=== PATIENT | female | born 1940 | race Caucasian/White ===

== ENCOUNTER → 2020-05-31 | Day surgery (SDC) | payer MEDICARE, MEDICAID ==
[2020-05-24 11:44] LABS: BASOPHILS % (AUTO) 0.5 % (0-1); EOSINOPHILS # (AUTO) 0.1 X10'3 (0-0.9); EOSINOPHILS % (AUTO) 1.1 % (0-6); LYMPHOCYTES # (AUTO) 1.2 X10'3 (1.1-4.8); LYMPHOCYTES % (AUTO) 26.8 % (21-51); MEAN CORPUSCULAR HEMOGLOBIN 32.1 PG (27.0-31.0); MEAN CORPUSCULAR VOLUME 94.5 FL (78-98); MEAN PLATELET VOLUME 8.9 FL (7.4-10.4); MONOCYTES # (AUTO) 0.4 X10'3 (0-0.9); MONOCYTES % (AUTO) 9.4 % (2-12); NEUTROPHILS # (AUTO) 2.9 X10'3 (1.8-7.7); NEUTROPHILS % (AUTO) 62.2 % (42-75); PRE OP HEMATOCRIT 43.8 % (35.0-45.0); PRE OP HEMOGLOBIN 14.9 g/dL (12.0-16.0); PRE OP PLATELET COUNT 177 X10'3 (140-440); RED BLOOD COUNT 4.63 X10'6 (4.20-5.60); RED CELL DISTRIBUTION WIDTH 13.8 % (11.5-14.5)
[2020-05-24 12:02] LABS: ALBUMIN 3.9 G/DL (3.4-5.0); ALBUMIN/GLOBULIN RATIO 1.1 (1.1-1.5); ALKALINE PHOSPHATASE 77 IU/L (46-116); BLOOD UREA NITROGEN 16 MG/DL (7-18); CALCIUM 9.6 MG/DL (8.5-10.1); CHLORIDE 101 MMOL/L (99-107); PRE OP ALT 9 U/L (30-65); PRE OP ANION GAP 8 (8-16); PRE OP AST 24 U/L (10-37); PRE OP BILIRUB, TOTAL 0.6 MG/DL (0.0-1.0); PRE OP GLUCOSE 115 MG/DL (70-104); PRE OP PROTIME 9.8 SECONDS (9.0-12.0); PRE OP SODIUM 140 MMOL/L (135-145); TOTAL CARBON DIOXIDE 30.9 MMOL/L (24-32); TOTAL PROTEIN 7.6 G/DL (6.4-8.2); eGFR 53 ML/MIN
[2020-05-31] VITALS (24 sets, daily range): BP systolic 126–184; BP diastolic 78–102
[~2020-05-31] VITALS: Ht 172.7 cm; Wt 74.4 kg
[~2020-05-31] MED LIST: BUPIVAcaine 0.5% inj/PF 60 ML ONE; BUPIVAcaine/PF 2.5 mg/ml (0.25%) 30ml vial ONE; CARB1CAP PO; HYDROmorphone inj. 0.5 MG/0.5 ML DISP.SYRIN IV PRN; LIDOcaine 1% 30ml preserv. free vial ONE; LIDOcaine 1% w/epiNEPHrine 1:200,000 30ml vial ONE; LOSA50TA3 PO; PANT20TA18 PO; ceFAZolin 2gm in dextrose, iso 50 ML IV ONE; famotidine 10mg tablet PO ONE; fentaNYL/PF 50MCG/1 ML 2ML syringe IV PRN; fentaNYL/PF 50MCG/1 ML 2ML syringe ONE; hydrALAZINE 20mg/ml inj. IV PRN; labetalol 20mg/4ml (5mg/ml) syringe IV ONE; morphine 10mg/ml inj. ONE; ondansetron/PF 4mg/2ml inj IV PRN; propofol inj 20 ML IV ONE; ringers solution, lacted 1,000 ML IV SCH; triamcinolone acetonide 40mg/ml inj ONE; vancomycin 1,500 MG in NS 300ml IV soln IV ONE
--- NOTE | 2020-05-31 10:19 | NUR ---
Received from OR via [facility], accompanied by Anesthesiologist STEWART and report given by Anesthesiolgist. PATIENT WITH 20G PIV IN LEFT UE RUNNING LR AT 100. DENIES PAIN. LEFT KNEE DRESSING IS CDI. + DP. Addendum: 05/31/20 at 1055 by Ravi Mccann RN, RN Amended: Links added.
[2020-05-31] MEDS: labetalol 20mg/4ml (5mg/ml) syringe IV PRN ×2 (12:04→13:18)
--- NOTE | 2020-05-31 12:42 | NUR ---
MD WILLIAM CALLED EARLIER FOR INCREASING BP. PATIENT ORDERS FOR APRESSOLINE ATTAINED. ADMINISTERED WITH NO CHANGE IN BP. DENIES PAIN. CALLED MD AGAIN 15 MINS AFTER APRESSOLINE. HR IN 70S, LABETALOL ORDERS RECIEVED AND MEDS ADMINISTERED. PATIENT STATES SHE FEELS VERY WEAK AND JUST WANTS TO SLEEP. NOTIFIED OF MINIMAL CHANGE OF CONDITION AND I REQUESTED THAT HE SEES PATIENT. MD COMPLIES- ASSESSED SITUATION. EKG ORDER RECEIVED AND ORDERS TO CONTINUE TO ASSESS WITH THE POSSIBILITY OF ADMISSION TO THE HOSPITAL. PATIENT CONTINUES TO DECLINE HAVING PAIN. CHANGED BP CUFF TO OTHER UE. NO CHANGE IN CURRENT BPS. BLOOD GLUCOSE OF 104. 1 HR LATER BPS GRADUALLY DECREASING. HOWEVER PATIENT CONTINUES TO FEEL POORLY. Addendum: 05/31/20 at 1249 by Ravi Mccann RN, RN Amended: Links added.
--- NOTE | 2020-05-31 13:59 | NUR ---
ALL DC CRITERIA HAS BEEN MET. PATIENT VOIDING, WALKING, DRESSED WITH ASSIST. VSS. DENIES PAIN. VERY APPRECIATIVE OF PATIENT CARE. OUT VIA WHEELCHAIR WHERE PATIENTS DAUGHTER TOOK PATIENT HOME. IV OUT WITHOUT INCIDENT. Addendum: 05/31/20 at 1446 by Ravi Mccann RN RN Amended: Links added.
== END | disposition home or self-care (01) ==
LOC: PAS 07:16
PROVIDERS: ATTEND Orthopaedic Surgery
DX: S83.272A Complex tear of lateral meniscus, current injury, left knee, initial encounter (principal); S83.232A Complex tear of medial meniscus, current injury, left knee, initial encounter; M94.262 Chondromalacia, left knee; I10 Essential (primary) hypertension; K21.9 Gastro-esophageal reflux disease without esophagitis; E78.5 Hyperlipidemia, unspecified; E66.8 Other obesity; Z68.27 Body mass index [BMI] 27.0-27.9, adult; G20 Parkinson's disease; M17.0 Bilateral primary osteoarthritis of knee; E11.51 Type 2 diabetes mellitus with diabetic peripheral angiopathy without gangrene; Z79.899 Other long term (current) drug therapy; Z88.5 Allergy status to narcotic agent; Z88.8 Allergy status to other drugs, medicaments and biological substances; Z98.890 Other specified postprocedural states; Z87.891 Personal history of nicotine dependence; Z20.828 Contact with and (suspected) exposure to other viral communicable diseases; Z79.01 Long term (current) use of anticoagulants; X58.XXXA Exposure to other specified factors, initial encounter; Y93.89 Activity, other specified; Y92.89 Other specified places as the place of occurrence of the external cause; Y99.8 Other external cause status
CPT/HCPCS: 29873; 29879; 29880; 36415; 80053; 82948; 85025; 85610; 85730; 87635; 93005; J0360; J2001; J2270; J2704; J3010; J3301; J3370; J3490; J7040; A4215; A4618; A6250; A6449; A7000; J7120

== ENCOUNTER 2021-02-24 18:38 | Emergency (ER) | payer BC, MEDICAID ==
[~2021-02-24] VITALS: Ht 172.7 cm; Wt 75.5 kg
[~2021-02-24 18:38] MED LIST changes: -BUPIVAcaine 0.5% inj/PF 60 ML ONE; -BUPIVAcaine/PF 2.5 mg/ml (0.25%) 30ml vial ONE; -HYDROmorphone inj. 0.5 MG/0.5 ML DISP.SYRIN IV PRN; -LIDOcaine 1% 30ml preserv. free vial ONE; -LIDOcaine 1% w/epiNEPHrine 1:200,000 30ml vial ONE; -ceFAZolin 2gm in dextrose, iso 50 ML IV ONE; -famotidine 10mg tablet PO ONE; -fentaNYL/PF 50MCG/1 ML 2ML syringe IV PRN; -fentaNYL/PF 50MCG/1 ML 2ML syringe ONE; -hydrALAZINE 20mg/ml inj. IV PRN; -labetalol 20mg/4ml (5mg/ml) syringe IV ONE; -morphine 10mg/ml inj. ONE; -ondansetron/PF 4mg/2ml inj IV PRN; -propofol inj 20 ML IV ONE; -ringers solution, lacted 1,000 ML IV SCH; -triamcinolone acetonide 40mg/ml inj ONE; -vancomycin 1,500 MG in NS 300ml IV soln IV ONE
[2021-02-24 19:20] LABS: BASOPHILS % (AUTO) 0.4 % (0-1); EOSINOPHILS # (AUTO) 0.1 X10'3 (0-0.9); EOSINOPHILS % (AUTO) 1.9 % (0-6); HEMATOCRIT 43.3 % (35.0-45.0); HEMOGLOBIN 14.8 g/dl (12.0-16.0); LYMPHOCYTES # (AUTO) 1.3 X10'3 (1.1-4.8); LYMPHOCYTES % (AUTO) 27.2 % (21-51); MEAN CORPUSCULAR HEMOGLOBIN 32.2 PG (27.0-31.0); MEAN CORPUSCULAR HGB CONC 34.1 g/dL (33.0-36.5); MEAN CORPUSCULAR VOLUME 94.3 FL (78-98); MEAN PLATELET VOLUME 8.8 FL (7.4-10.4); MONOCYTES # (AUTO) 0.5 X10'3 (0-0.9); MONOCYTES % (AUTO) 10.9 % (2-12); NEUTROPHILS # (AUTO) 2.9 X10'3 (1.8-7.7); NEUTROPHILS % (AUTO) 59.6 % (42-75); PLATELET COUNT 147 X10'3 (140-440); RED CELL DISTRIBUTION WIDTH 13.4 % (11.5-14.5); WHITE BLOOD COUNT 4.8 X10'3 (4.5-11.0)
[2021-02-24 19:41] LABS: ALANINE AMINOTRANSFERASE 12 U/L (12-78); ALBUMIN 3.7 G/DL (3.4-5.0); ALKALINE PHOSPHATASE 80 IU/L (46-116); ANION GAP 5 (8-16); ASPARTATE AMINO TRANSFERASE 22 U/L (10-37); BILIRUBIN,TOTAL 0.4 MG/DL (0.1-1.0); BLOOD UREA NITROGEN 22 MG/DL (7-18); BUN/CREATININE RATIO 23.4 (6.6-38.0); CALCIUM 9.1 MG/DL (8.5-10.1); CHLORIDE 107 MMOL/L (99-107); CREATININE 0.94 MG/DL (0.40-0.90); GLUCOSE 96 MG/DL (70-104); POTASSIUM 3.8 MMOL/L (3.5-5.1); SODIUM 141 MMOL/L (135-145); TOTAL CARBON DIOXIDE 28.9 MMOL/L (24-32); TOTAL PROTEIN 7.3 G/DL (6.4-8.2); eGFR 57 ML/MIN
[2021-02-24 20:13] LABS: CLARITY,URINE CLEAR (Clear); COLOR,URINE YELLOW (Yellow); GLUCOSE, URINE NEGATIVE (Neg); KETONES,URINE NEGATIVE (Neg); LEUKOCYTE ESTERASE ,URINE NEGATIVE (Neg); NITRITES, URINE NEGATIVE (Neg); OCCULT BLOOD,URINE NEGATIVE (Neg); PH,URINE 6.5 (4.8-8.0); PROTEIN,URINE NEGATIVE (Neg); UROBILINOGEN,URINE 0.2 E.U/dL (0.2-1.0)
[2021-02-24 20:24] LABS: UA COLLECTION TYPE CLN CATCH MIDSTREAM
[2021-02-24] MEDS ORDERED: LISI10TA27 PO (20:34)
[2021-02-24 20:46] VITALS: BP 169/89
== END 2021-02-24 21:53 | disposition home or self-care (01) ==
LOC: ER 18:38
DX: I10 Essential (primary) hypertension (principal); Z88.6 Allergy status to analgesic agent; Z88.8 Allergy status to other drugs, medicaments and biological substances; Z79.899 Other long term (current) drug therapy
CPT/HCPCS: 36415; 70450; 71045; 80053; 81003; 83880; 84484; 85025; 93005; 99285

== ENCOUNTER 2022-03-04 18:07 | Emergency (ER) | payer BC, MEDICAID ==
[~2022-03-04] VITALS: Ht 172.7 cm; Wt 78.2 kg
[~2022-03-04 18:07] MED LIST changes: +LISI10TA27 PO
--- NOTE | 2022-03-04 22:25 | NUR ---
first encounter with pt that is here today for bilateral leg swelling for a couple weeks, cough for the last 2 months, and SOB for the past few days
[2022-03-04 22:43] LABS: BASOPHILS % (AUTO) 0.3 % (0-1); EOSINOPHILS # (AUTO) 0.4 X10'3 (0-0.9); EOSINOPHILS % (AUTO) 5.5 % (0-6); HEMATOCRIT 43.1 % (35.0-45.0); HEMOGLOBIN 14.5 g/dl (12.0-16.0); LYMPHOCYTES # (AUTO) 2.2 X10'3 (1.1-4.8); LYMPHOCYTES % (AUTO) 31.3 % (21-51); MEAN CORPUSCULAR HEMOGLOBIN 32.8 PG (27.0-31.0); MEAN CORPUSCULAR HGB CONC 33.7 g/dL (33.0-36.5); MEAN CORPUSCULAR VOLUME 97.3 FL (78-98); MEAN PLATELET VOLUME 8.4 FL (7.4-10.4); MONOCYTES # (AUTO) 0.5 X10'3 (0-0.9); MONOCYTES % (AUTO) 7.9 % (2-12); NEUTROPHILS # (AUTO) 3.8 X10'3 (1.8-7.7); PLATELET COUNT 165 X10'3 (140-440); RED BLOOD COUNT 4.44 X10'6 (4.20-5.60); RED CELL DISTRIBUTION WIDTH 13.6 % (11.5-14.5); WHITE BLOOD COUNT 6.9 X10'3 (4.5-11.0)
[2022-03-04 22:53] LABS: ALANINE AMINOTRANSFERASE 11 U/L (12-78); ALBUMIN/GLOBULIN RATIO 1.1 (1.1-1.5); ALKALINE PHOSPHATASE 84 IU/L (46-116); ANION GAP 8 (8-16); ASPARTATE AMINO TRANSFERASE 25 U/L (10-37); BILIRUBIN,TOTAL 0.4 MG/DL (0.1-1.0); BLOOD UREA NITROGEN 15 MG/DL (7-18); CALCIUM 8.9 MG/DL (8.5-10.1); CHLORIDE 107 MMOL/L (99-107); CREATININE 0.94 MG/DL (0.40-0.90); GLUCOSE 90 MG/DL (70-104); POTASSIUM 4.3 MMOL/L (3.5-5.1); SODIUM 141 MMOL/L (135-145); TOTAL CARBON DIOXIDE 25.8 MMOL/L (24-32); TOTAL PROTEIN 7.8 G/DL (6.4-8.2); eGFR 57 ML/MIN
[2022-03-04] MEDS ORDERED: furosemide 10 MG/1 ML 10ml inj IV ONE (23:05)
[2022-03-04] MEDS ORDERED: POTA-192 PO (23:14)
[2022-03-04] MEDS ORDERED: FURO-150 PO (23:14)
[2022-03-04] MEDS ORDERED: furosemide 20MG tablet PO ONE (23:20)
[2022-03-04 23:39] VITALS: BP 178/81
== END 2022-03-04 23:42 | disposition home or self-care (01) ==
LOC: ER 18:08
DX: I10 Essential (primary) hypertension (principal); R60.0 Localized edema; R05.9 Cough, unspecified; R06.02 Shortness of breath; G20 Parkinson's disease; Z88.8 Allergy status to other drugs, medicaments and biological substances; Z88.5 Allergy status to narcotic agent; Z88.6 Allergy status to analgesic agent; Z79.899 Other long term (current) drug therapy
CPT/HCPCS: 36415; 71045; 80053; 83880; 84484; 85025; 93005; 99285

== ENCOUNTER 2022-04-23 14:15 | Outpatient (CLI) | payer BC, MEDICAID ==
[~2022-04-23 14:15] MED LIST changes: +FURO-150 PO
== END 2022-04-23 23:59 | disposition home or self-care (01) ==
LOC: RAD 14:15
PROVIDERS: ATTEND Internal Medicine
DX: R13.12 Dysphagia, oropharyngeal phase (principal); R47.1 Dysarthria and anarthria; R49.0 Dysphonia; G20 Parkinson's disease
CPT/HCPCS: 74230

== ENCOUNTER 2022-08-02 11:28 | Emergency (ER) | payer BC, MEDICAID ==
[~2022-08-02] VITALS: Ht 172.7 cm; Wt 75.0 kg
[2022-08-02 12:32] LABS: BASOPHILS % (AUTO) 0.3 % (0-1); EOSINOPHILS # (AUTO) 0.1 X10'3 (0-0.9); EOSINOPHILS % (AUTO) 1.2 % (0-6); HEMATOCRIT 43.9 % (35.0-45.0); HEMOGLOBIN 14.9 g/dl (12.0-16.0); LYMPHOCYTES # (AUTO) 1.6 X10'3 (1.1-4.8); LYMPHOCYTES % (AUTO) 15.4 % (21-51); MEAN PLATELET VOLUME 8.3 FL (7.4-10.4); MONOCYTES # (AUTO) 0.8 X10'3 (0-0.9); MONOCYTES % (AUTO) 8.1 % (2-12); NEUTROPHILS # (AUTO) 7.6 X10'3 (1.8-7.7); PLATELET COUNT 203 X10'3 (140-440); RED BLOOD COUNT 4.52 X10'6 (4.20-5.60); RED CELL DISTRIBUTION WIDTH 13.4 % (11.5-14.5); WHITE BLOOD COUNT 10.1 X10'3 (4.5-11.0)
[2022-08-02 12:53] LABS: ALANINE AMINOTRANSFERASE 10 U/L (12-78); ALBUMIN 3.6 G/DL (3.4-5.0); ALBUMIN/GLOBULIN RATIO 0.9 (1.1-1.5); ALKALINE PHOSPHATASE 99 IU/L (46-116); ANION GAP 8 (8-16); ASPARTATE AMINO TRANSFERASE 27 U/L (10-37); BILIRUBIN,TOTAL 0.5 MG/DL (0.1-1.0); BLOOD UREA NITROGEN 12 MG/DL (7-18); BUN/CREATININE RATIO 12.6 (6.6-38.0); CALCIUM 8.9 MG/DL (8.5-10.1); CHLORIDE 103 MMOL/L (99-107); CREATININE 0.95 MG/DL (0.40-0.90); GLUCOSE 114 MG/DL (70-104); POTASSIUM 4.2 MMOL/L (3.5-5.1); SODIUM 138 MMOL/L (135-145); TOTAL PROTEIN 7.5 G/DL (6.4-8.2); eGFR 56 ML/MIN
[2022-08-02 13:49] VITALS: BP 117/84
== END 2022-08-02 14:08 | disposition home or self-care (01) ==
LOC: ER 11:28
DX: B34.9 Viral infection, unspecified (principal); I10 Essential (primary) hypertension; Z88.5 Allergy status to narcotic agent; Z88.8 Allergy status to other drugs, medicaments and biological substances; Z79.899 Other long term (current) drug therapy; Z88.1 Allergy status to other antibiotic agents
CPT/HCPCS: 36415; 71046; 80053; 83605; 83880; 85025; 87040; 99284

== ENCOUNTER 2025-06-15 10:26 | Outpatient (CLI) | payer MEDICARE, MEDICAID ==
[~2025-06-15 10:26] MED LIST changes: +LOSA-416 PO; -LOSA50TA3 PO
--- NOTE | 2025-06-17 11:34 | CONSULTATION ---
DATE OF CONSULTATION: 06/15/2025 DICTATING PHYSICIAN: Vale Sepulveda M.S., [facility] CLERK MODIFIED BARIUM SWALLOW STUDY REPORT REFERRING PHYSICIAN: Rachele Cano DO HISTORY OF PRESENT ILLNESS: The patient is an 85-year-old female and consents to this evaluation. In history obtained from the patient and medical records, the patient was diagnosed with Parkinson's disease in 2017, but she reported that her symptoms had started prior to that time. Her earliest symptoms were tremor on the ring finger of each hand and a lateral movement. Her handwriting was also diminished. 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 She believes that the etiology of the Parkinson's disease might be due to exposure to environmental toxins. Currently, she is having symptoms of dysphagia and dysphonia. In terms of symptoms of dysphagia, she reports that she has thick mucus that she cannot cough back up and it stays in her throat. She also reports that she has been coughing on food, liquids, and phlegm. She presents with overt signs and symptoms of aspiration on liquids at least once weekly. She notes that she used to have a strategy to be able to catch her breath, which was a quick inhale through the nose, slow exhale through the mouth, but that she is no longer able to breathe through her nose because of the dryness of her nose. The patient was previously seen for speech and swallowing therapy in 2021 and 2022 with exercises consisting of speak out exercises and swallowing exercises targeting lingual strength and tongue base retraction. Since she was discharged, she reports that she had fallen and had a concussion and broke her ribs. 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 CURRENT DIET: In terms of caffeine, the patient has 2 cups of green tea on a daily basis and some soda. She does not utilize tobacco products or drink alcohol. She consumes chocolate once weekly. In terms of dairy products, the patient has been having a plant-based milk, which was almond milk, but she does continue to have cheese and [place] yogurt. A typical breakfast consists of sourdough toast with butter and honey. She does not snack in the morning and does not eat a typical lunch, but she will snack throughout the afternoon on items such as smoked salmon. Typical dinner is usually eaten at 6:00 p.m. and is some sort of salad and she goes to bed between 8 and 9 p.m. MEDICATIONS: Potassium chloride 10 mEq 1 tablet once daily orally, rosuvastatin calcium 20 mg 1 tablet once daily orally, aspirin 81 mg 1 tablet once daily orally, carbidopa/levodopa 48.75-195 mg ER, 2 capsules orally 3 times a day at 7 a.m., 1 p.m. and 7 p.m., escitalopram oxalate 5 mg 1 tablet once daily orally, furosemide 20 mg 1 tablet once daily orally, metoprolol succinate 25 mg ER 1 tablet once daily orally. PARAMETERS: The patient is seated in a lateral 90-degree view and administered the usual protocol of thin and nectar-thick liquids, puree and solid consistencies, as well as self-regulated boluses of thin liquids from the cup. RESULTS: In the oral stage of the swallow, oral transit is characterized by reduced strength and range of motion of the tongue that is mild to moderate. The patient utilizes a lingual rocking motion in order to propel the bolus from the anterior to the posterior oral cavity. There is a mild oral residue following the initial swallow of boluses. In the pharyngeal stage of the swallow, tongue base retraction is mild to moderately reduced. Swallow initiation is delayed to the level of the piriformis for the 3 mL thin liquid bolus to the level of the vallecula for the 3 mL nectar-thick liquid bolus. Cranial nerve 9 triggers the swallow reflex and it appears that the sensation to trigger the swallow reflex has been reduced. Anterior movement of the posterior pharyngeal wall is observed. Elevation of the hyothyroid complex is accomplished with decreased epiglottic inversion. There is a mild pharyngeal residue after the initial swallow of boluses at the level of the vallecula. PES opening is within functional limits. At no time was the patient noted to penetrate or aspirate on any of the bolus sizes or consistencies. It was noted in this lateral plane that the patient had thickening of the puree and solid boluses below the level of the PES opening. ANTERIOR-POSTERIOR VIEW: In AP plane, the bolus split symmetrically between the piriform sinuses and there was proximal movement of the boluses to the level of the mid sternum. IMPRESSION: The patient demonstrates with a moderate pharyngoesophageal stage swallowing disorder characterized by decreased tongue base retraction, delayed swallow initiation, and proximal movement of the boluses in AP view. DIAGNOSES: R13.14 dysphagia, pharyngoesophageal phase, R47.1 dysarthria, R49.0 dysphonia, G20.C Parkinson's disease, unspecified. PATIENT EDUCATION: Immediately following modified barium swallow study, the patient and her daughter were able to view the results. The normal anatomy of the swallowing mechanism was revealed. She was educated on swallowing strategies including alternating her liquids and solids and swallowing with intent. RECOMMENDATIONS: 1. It is recommended that the patient be seen for concomitant speech/voice and swallowing therapy, CPT 99307 & 79868, one time weekly for 12 weeks to improve the strength of the swallowing musculature to ensure airway safety protection and prevent aspiration. 2. It is recommended that the patient be considered for a GI consult regarding the proximal movement of the boluses observed in AP view. 3. It is recommended that the patient be considered for a referral to an ENT regarding her inability to breathe through her nose. PROGNOSIS: Prognosis for the patient is good in terms of patient motivation, family support, and willingness to learn. LONG-TERM GOALS: The patient will maintain adequate hydration/nutrition with optimum safety and efficiency of swallow function on p.o. intake with overt signs and symptoms of aspiration decreased to once biweekly for the highest possible diet level. FUNCTIONAL ORAL INTAKE: The FOIS was administered to establish and document a change in the functional eating activities of this patient over time. This was a 7-point scale with 1 indicating no oral intake and totally tube dependent and 7 indicating total oral intake with no restrictions. This patient received a 6, which indicates she has a total oral diet with multiple consistencies without special preparation, but with specific food limitations and precautions. G-CODE: [id number]. Thank you very much for asking me to participate in the care of this kind patient. Should you have any questions regarding this evaluation or recommendations, please do not hesitate to contact me at [phone]. During this examination, 3:16 minutes of fluoroscopy time and 14.66 CAK mGy were utilized. Vale Sepulveda M.S., [facility] CL[employer] TID: [id number] RECEIPT: [id number] [place]
== END 2025-06-15 23:59 | disposition home or self-care (01) ==
LOC: RAD 10:26
PROVIDERS: ATTEND Psychiatry & Neurology Neurology
DX: R13.10 Dysphagia, unspecified (principal); G20.C Parkinsonism, unspecified
CPT/HCPCS: 74230